=== PATIENT | female | born 1945 | race Caucasian/White ===

== ENCOUNTER → 2021-05-28 | Outpatient (CLI) | payer MEDICARE ==
[~2021-05-28] MED LIST: ACETAMINOPHEN-1 EAC1 PO; CALCIUM500 MG PO; COQ-10100 MG PO; DITROPAN XL10 MG PO; FISH OIL 10001000 MG PO; FLONASE 0.05% N16 GM; LEVAQUIN500 MG PO; MYRBETRIQ25 MG PO; RANITIDINE HCL150 M1 PO; RESTASIS 0.05%1 EACH OU; SIMVASTATIN20 MG PO; ZINC50 M2 PO; ZYRTEC10 M3 PO
== END ==
LOC: KOH-I 14:16
DX: M25.561 Pain in right knee (principal)
CPT/HCPCS: 73562